=== PATIENT | female | born 1985 | race Two or more races ===

== ENCOUNTER 2021-09-17 16:21 | Emergency (ER) | payer OTHER ==
[~2021-09-17] VITALS: Ht 167.6 cm; Wt 97.5 kg
[2021-09-17 18:26] VITALS: BP 135/90
== END 2021-09-17 18:30 | disposition home or self-care (01) ==
LOC: ER 16:21
DX: R51.9 Headache, unspecified (principal); F17.210 Nicotine dependence, cigarettes, uncomplicated; J45.909 Unspecified asthma, uncomplicated; Z77.098 Contact with and (suspected) exposure to other hazardous, chiefly nonmedicinal, chemicals
CPT/HCPCS: 71046; 81025